=== PATIENT | female | born 1960 | race Caucasian/White ===

== ENCOUNTER 2023-07-15 19:45 | Emergency (ER) | payer BC, SELFPAY ==
[2023-07-15 19:49] VITALS: BP 140/102
[2023-07-15 20:04] LABS: % Basophils 0.8 % (0-2); % Eosinophils 1.6 % (0-6); % Immature Granulocytes 0.2 % (0-0.5); % Lymphocytes 32.6 % (20.5-51.1); % Monocytes 8.4 % (1.7-9.3); % Neutrophils 56.4 % (42.2-75.2); Absolute Basophils 0.1 10^3/uL (0-0.2); Absolute Eosinophils 0.1 10^3/uL (0-0.7); Absolute Monocytes 0.5 10^3/uL (0.1-0.6); Absolute Neutrophils 3.4 10^3/uL (1.4-6.5); Hematocrit 36.9 % (37.0-47.0); Hemoglobin 12.5 g/dL (12.0-16.0); Mean Corp Hgb Conc. 33.9 g/dL (33.0-37.0); Mean Corpuscular Hgb 28.8 pg (27.0-31.0); Nucleated Red Blood Cells % 0 %; Platelet Count 229 10^3/uL (130-400); Red Blood Cell Count 4.34 10^6/uL (4.20-5.40); Red Cell Dist. Width 13.2 % (11.5-14.5); Urine Albumin Negative (Neg - Trace); Urine Bilirubin Negative (Negative); Urine Character Clear (Clear); Urine Color Straw; Urine Glucose Negative (Negative); Urine Ketone Negative (Negative); Urine Leukocyte Trace (Negative); Urine Nitrite Negative (Negative); Urine Occult Blood 3+ (Negative); Urine Specific Gravity 1.015 (<1.030); Urine Urobilinogen Negative (Neg - 1+); White Blood Cell Count 6.1 10^3/uL (4.8-10.8)
[2023-07-15 20:16] LABS: ALT (SGPT) 17 U/L (0-35); AST (SGOT) 26 U/L (14-36); Albumin 4.5 g/dl (3.5-5.0); Alkaline Phosphatase 69 U/L (38-126); Blood Urea Nitrogen 33 mg/dl (7-17); Calcium 9.8 mg/dl (8.4-10.2); Carbon Dioxide 28 mmol/L (22-30); Chloride 102 mmol/L (98-107); Glucose 102 mg/dl (70-99); Potassium 4.2 mmol/L (3.5-5.1); Sodium 137 mmol/L (135-145); Total Bilirubin 0.3 mg/dl (0.2-1.3); eGFR 50.86
[2023-07-15 20:43] LABS: Urine Mucus Moderate
[2023-07-15 20:45] LABS: Urine Red Blood Cell 50-60 /HPF (0-2)
[2023-07-15 20:46] LABS: Urine Bacteria Few (Negative); Urine White Cell 0-2 /HPF (0-5)
[2023-07-15 20:55] VITALS: BP 173/92
[2023-07-15 21:00] VITALS: BP 156/90
--- NOTE | 2023-07-15 21:27 | ED.GENMED ---
History of Present Illness
General
Chief Complaint: Flank Pain
Time Seen by Provider: 07/15/23 20:38
Travel History
Have you had any contact with someone who has COVID-19?: No
Do you have any symptoms of coronavirus? Fever > 100 degrees, chills, cough, shortness of breath, sore throat, loss of taste or smell, muscle aches, or headache?: No
History of Present Illness
History of Present Illness:
62-year-old female presents to the emergency department for evaluation of left lower abdominal pain rating to the left flank. She states this has been developing over the past several weeks, worsening today. Feels a kidney stone which she most
recently had and January. No fevers or chills. Denies nausea or vomiting. Does have some blood in the urine
Past History
Past History
ED Past Medical History: Other (Ulcers)
ED Past Surgical History: Appendectomy and
Social History
Tobacco: Non-smoker
Alcohol: None
Personal:
Living: with family
Review of Systems
Review of Systems
Allergies reviewed?: Yes
All Other Systems: ROS reviewed and negative except as documented in HPI and ROS
Phy Exam
Physical Exam
Physical Exam:
GEN: Well appearing, NAD, WDWN
HEENT: Oral mucosa moist, no scleral icterus
Cardiac: Regular rate
Lung: No respiratory distress, no tachypnea
Abdomen: Soft, nontender, no CVA tenderness
MSK: No gross deformity or injuries
Skin: Good color, no pallor or jaundice, no rashes
Neuro: AO x3, moves all extremities freely
Psych: Calm, cooperative
Course
Orders/Labs/Results
Orders:
Orders
07/15/23 19:56
CMP [Comprehensive Metabolic Panel] Urgent
Complete Blood Count/With Diff Urgent
Urinalysis Urgent
Date Specimen was Collected: 07/15/23
Time Specimen was Collected: 19:51
Urine Microscopic Urgent
Date Specimen was Collected: 07/15/23
Time Specimen was Collected: 19:51
07/15/23 20:39
CT Abd/pel Without Iv Or Oral Urgent
Comment:
Reason For Exam: L flank pain
07/15/23 22:24
Ketorolac [Toradol] 15 mg IV NOW STA
Abnormal Lab Results
07/15/23
19:56
Hct 36.9 L %
(37.0-47.0)
BUN 33 H mg/dl
(7-17)
Creatinine 1.2 H mg/dL
(0.6-1.0)
Glucose 102 H mg/dl
(70-99)
Urine Occult Blood 3+ A
(Negative)
Ur Leukocyte Esterase Trace A
(Negative)
Urine RBC 50-60 A /HPF
(0-2)
Urine Bacteria Few A
(Negative)
07/15/23 19:56
07/15/23 19:56
Vital Signs
Initial and Last Documented VS:
Initial Vital Signs
Temp Pulse Resp BP Pulse Ox
98.2 F 90 18 140/102 98
07/15/23 19:49 07/15/23 19:49 07/15/23 19:49 07/15/23 19:49 07/15/23 19:49
Last Documented Vital Signs
Temp Pulse Resp BP Pulse Ox
98.2 F 74 19 156/86 99
07/15/23 19:49 07/15/23 22:32 07/15/23 22:32 07/15/23 22:00 07/15/23 22:15
MDM/Problems Addressed
MDM/Problems Addressed:
Patient's pain is quite well-controlled at this time, labs are reassuring. Although she has 2 stones both are below 5 mm in size and given her clinical well appearance she is suitable for expectant management. Discussed supportive medications and
ED follow-up parameters
*Critical Care Note
Total Time (30-74mins, 75-104mins- exclusive of procedures): Not Applicable
ED Attending Note
-
Portions of this chart may have been created with voice recognition software.� Occasional wrong word or��sound alike� substitutions may have occurred due to the inherent limitations of voice recognition software.
Discharge Plan
Departure
Patient Disposition: Home (Routine Discharge)
Date of Disposition: 07/15/23
Time of Disposition: 22:24
Patient with high blood pressure during this ER visit?: No
Discharge Problem:
Ureterolithiasis
Instructions: Kidney Stones (DC)
Prescriptions:
New
diclofenac sodium 75 mg tablet,delayed release (DR/EC)
75 mg PO BID Qty: 20 0RF
oxycodone 5 mg tablet
5 mg PO Q8H PRN (Reason: Pain) Qty: 8 0RF
tamsulosin [Flomax] 0.4 mg capsule
0.4 mg PO HS Qty: 10 0RF
No Action
tamsulosin [Flomax] 0.4 mg capsule
0.4 mg PO HS Qty: 10 0RF
ondansetron 4 mg tablet,disintegrating
4 mg PO Q8H PRN (Reason: nausea and vomiting) Qty: 7 0RF
oxycodone-acetaminophen [Percocet] 5-325 mg tablet
1 tab PO Q4HPRN PRN (Reason: pain) Qty: 10 0RF
Referrals:
Israel De La Cruz MD [Family Provider] -
Activity Restrictions/Additional Instructions:
Return to the ER immediately if you develop a fever or uncontrolled pain
Interventions
Interventions:
*Risk Screen - Suicide Last Done: 07/15/23 19:49
*Neglect/Abuse Screening Last Done: 07/15/23 19:49
ED- Fall Risk Assessment Last Done: 07/15/23 20:32
*ED COVID-19 Vaccine History Last Done: 07/15/23 20:31
*Nursing Disposition Last Done: 07/15/23 22:38
MD-Qefxin-Jepprjlzif Assessment Last Done: 07/15/23 20:39
ED-Female Genitourinary Assessment Last Done: 07/15/23 20:39
Discharge Date and Time
Discharge Date/Time: 07/15/23 22:38
Print Language: ARMENIAN
[2023-07-15 21:47] VITALS: BP 147/100
[2023-07-15 22:00] VITALS: BP 156/86
[2023-07-15] MEDS: TORADOL 15 MG IV (22:28)
== END 2023-07-15 22:38 | disposition home or self-care (01) ==
LOC: EMR 19:45
PROVIDERS: EMERGENCY PHYSICIAN Student in an Organized Health Care Education/Training Program; FAMILY PHYSICIAN Specialist
DX: N20.1 Calculus of ureter (principal); Z90.49 Acquired absence of other specified parts of digestive tract
CPT/HCPCS: 99284; 96374; 74176; 80053; 81003; 81015; 85025